=== PATIENT | female | born 1980 | race Caucasian/White ===

== ENCOUNTER → 2024-08-29 | Outpatient (REF) | payer BC ==
[~2024-08-29] MED LIST: BENEFIBER1 EAC2 PO; FAMOTIDINE20 MG PO; JARDIANCE10 MG PO; LIPITOR20 MG PO; LOSARTAN POTAS100 MG PO; METFORMIN HCL850 MG PO; MONTELUKAST SOD10 MG PO; OZEMPIC2 MG/0.75 SQ
== END ==
LOC: RAD 08:00 → EDSTATUS 09-01 15:00
PROVIDERS: ATTEND Internal Medicine Gastroenterology
DX: Z01.818 Encounter for other preprocedural examination (principal); Z12.11 Encounter for screening for malignant neoplasm of colon; K21.9 Gastro-esophageal reflux disease without esophagitis
CPT/HCPCS: 93005